=== PATIENT | female | born 1955 | race Asian ===

== ENCOUNTER → 2025-04-05 | Outpatient (CLI) | payer MEDICARE, OTHER ==
[~2025-04-05] VITALS: Ht 160 cm; Wt 64.6 kg
[~2025-04-05] MED LIST: ASPI-1444 PO; EMPA25TA3 PO; LEVO25TA9 PO; MONT-35 PO; RALO60 PO; ROSU10TA72 PO
[2025-04-05 14:39] VITALS: BP 129/65; PULSE 76; RESP 14; TEMP 98.4; O2SAT 98
== END | disposition home or self-care (01) ==
LOC: SRCNTR 14:13
PROVIDERS: ATTEND Internal Medicine
DX: R01.1 Cardiac murmur, unspecified (principal); J45.909 Unspecified asthma, uncomplicated; E03.9 Hypothyroidism, unspecified; E78.5 Hyperlipidemia, unspecified; Z79.82 Long term (current) use of aspirin; Z79.899 Other long term (current) drug therapy
CPT/HCPCS: G0463